=== PATIENT | female | born 1975 | race Caucasian/White ===

== ENCOUNTER → 2018-01-21 | Outpatient (CLI) | payer OTHER ==
--- NOTE | 2018-01-21 14:59 | MAMMOGRAPHY REPORT ---
ULTRASOUND OF BOTH BREASTS: 01/21/2018 CLINICAL HISTORY: 42-year-old woman presents for a bilateral whole breast screening ultrasound. She h as never had screening mammography and declines mammography today. She wishes to assess both breasts with ultrasound and also describes a focal complaint of intermittent pain in the right lower inner qu adrant, usually cyclical in nature. Patient reports cessation of approximately 2 years ago but was still able to express milk from her breasts until approximately 3 months ago. Patient has a h istory of previous bilateral palpable breast lumps for which she underwent surgical excisional biopsi es and reportedly yielded fibroadenomas. COMPARISON: None. FINDINGS: Real-time high resolution sonographic evaluation was performed throughout each breast Including the retroareolar aspect of both breasts and the right and left axilla. The breast parenchy mal echotexture is heterogeneousdense. There are morphologically normal lymph nodes in the left axilla. There are scattered benign-appearin g subcentimeter masses in the left breast including: An anechoic oval parallel circumscribed simple c yst in the 2:00 periareolar left breast measuring 4.2 x 2.1 x 4.8 mm. There are 2-3 oval circumscrib ed hypoechoic solid versus cystic masses in the 3:00 left breast, 3 cm from the nipple, the largest o f which measures 3.7 x 2.3 x 4.2 mm, and an adjacent anechoic simple cyst measuring 4.5 x 2.7 mm. Th ere is an angular hypoechoic solid versus cystic mass in the 9:00 left breast, 1 cm from the nipple, measuring 4.8 x 2.9 x 4.0 mm. This is indeterminate and does not fit the criteria for a simple cyst and given angular borders does not fit the criteria for a benign-appearing solid mass. Definitive ch aracterization with ultrasound-guided core biopsy is recommended. There is a lobulated predominantly anechoic cyst in the 9:00 periareolar left breast measuring 5.6 x 4.6 x 6.8 mm. No other discrete s olid or cystic mass is seen within the left breast. No focal skin thickening appreciated. There is no suspicious abnormality in the lower inner left breast near the inframammary fold. There are scattered oval and round cystic and benign-appearing solid versus cystic masses in the righ t breast. In particular, there is a lobulated circumscribed anechoic simple cyst with posterior acou stic enhancement in the 1:00 right breast, 1 cm from the nipple measuring 4.8 x 2.3 x 6.2 mm. A roun d anechoic simple cyst is identified in the 5:00 right breast, 3 cm from the nipple measuring 2.8 x 2 .3 x 2.8 mm. There is duct ectasia throughout the 5:00, 6:00 and 7:00 axes of the right breast witho ut evidence of focal intraductal mass. There is an oval circumscribed hypoechoic solid versus cystic mass with possible minimal posterior acoustic enhancement in the 9:00 right breast, 4 cm from the ni pple, measuring 4.9 x 2.0 x 3.5 mm. Particular attention was paid to the area of focal pain in the 4: 00 to 5:00 right breast, 6 cm from the nipple in the area of intermittent mastalgia pointed out by th e patient. No discrete abnormality was identified. No suspicious right axillary lymphadenopathy evelyn ntified. IMPRESSION: ACR BI-RADS CATEGORY 4: SUSPICIOUS 1. Left breast ultrasound-guided core biopsy is recommended for an indeterminate 4.8 mm angular hypo echoic solid versus cystic mass identified in the 9:00 axis. 2. Pending benign pathology results from the left breast biopsy, would recommend a follow-up bilater al targeted ultrasound to ensure stability of the benign-appearing oval circumscribed solid versus cy stic masses in the 3:00 left breast and 9:00 right breast. 3. No suspicious axillary lymphadenopathy bilaterally. 4. Prior to this whole breast screening exam, I explained to the patient and her that mammog ludin is the current gold standard for reducing breast cancer mortality. Certain mammographic findin gs suggesting early breast cancer such as subtle architectural distortion and microcalcifications wou ld not necessarily be identified on whole breast screening ultrasound. Additionally, given that the patient has a focal complaint of focal pain in the right lower inner quadrant, standard of care is cu rrently mammography plus ultrasound and the patient did not undergo mammography today. Therefore her workup of this finding is technically incomplete. Continued close clinical follow-up is recommended. Amy Ayon M.D. ay/:01/21/2018 14:39:13 [employer] Boat Buffer: RT Antonio(Stephanie)(M), [facility] letter sent: Abnormal 4/5 BI-RADS Code: ACR BI-RADS Category 4: Suspicious
== END | disposition home or self-care (01) ==
LOC: C.MAMM 11:15
PROVIDERS: ATTEND Obstetrics & Gynecology
DX: Z12.31 Encounter for screening mammogram for malignant neoplasm of breast (principal); N63.20 Unspecified lump in the left breast, unspecified quadrant